=== PATIENT | male | born 1980 | race African-American/Black ===

== ENCOUNTER 2024-12-30 11:46 | Emergency (ER) | payer MEDICAID ==
[~2024-12-30] VITALS: Ht 182.9 cm; Wt 137.0 kg
[2024-12-30 11:51] VITALS: TEMP 37
[2024-12-30] MEDS: SODIUM CHLORIDE 0.9% 1,000 ML IV ONE (12:46)
[2024-12-30 12:47] VITALS: O2SAT 100
[2024-12-30] MEDS: MIDAZOLAM HCL 2 MG/2 ML VIAL IV ONE (12:47)
[2024-12-30] MEDS: ONDANSETRON HCL 4MG/2ML INJ IV ONE (12:47)
[2024-12-30 12:50] LABS: BASOPHILS % 0.5 % (0.0-2.0); EOSINOPHILS % 0.5 % (0.0-5.0); HEMATOCRIT. 40.9 % (42.0-52.0); HEMOGLOBIN. 13.8 g/dL (14.0-18.0); LYMPHOCYTES % 29.8 % (20.0-50.0); MEAN CORPUSCULAR HEMOGLOBIN 30.5 pg (28.0-32.0); MEAN CORPUSCULAR HGB CONC 33.7 g/dL (31.0-37.0); MEAN CORPUSCULAR VOLUME 90.5 fL (80.0-94.0); MEAN PLATELET VOLUME 10.5 fl (7.4-10.4); MONOCYTES % 11.1 % (2.0-8.0); NEUTROPHILS % 58.1 % (40.0-76.0); PLATELET 173 x1000/uL (130-400); RED BLOOD CELL COUNT 4.52 mill/uL (4.7-6.1); RED CELL DISTRIBUTION WIDTH 15.2 % (11.6-14.6); WHITE BLOOD COUNT 7.7 x1000/uL (4.5-11.0)
[2024-12-30 12:59] LABS: CHLORIDE 104 mEq/L (98-107); POTASSIUM 3.9 mEq/L (3.5-5.1); SODIUM 142 mEq/L (136-145)
[2024-12-30 13:00] LABS: CALCIUM 9.5 mg/dL (8.7-10.4); CARBON DIOXIDE 24 mEq/L (21-32)
[2024-12-30 13:05] LABS: CREATININE 1.1 mg/dL (0.6-1.3); GLUCOSE 104 mg/dL (70-105); UREA NITROGEN BLOOD 11 mg/dL (9-23)
[2024-12-30 13:06] LABS: ETHANOL BLOOD < 10 mg/dL (<10)
[2024-12-30 13:32] LABS: *AMPHETAMINES SCREEN URINE PRESUMPTIVE POSITIVE (NEGATIVE); *BARBITURATES SCREEN URINE NEGATIVE (NEGATIVE); *BENZODIAZEPINES SCREEN URINE NEGATIVE (NEGATIVE); *COCAINE SCREEN URINE NEGATIVE (NEGATIVE); METHADONE URINE SCREEN NEGATIVE (NEGATIVE)
[2024-12-30 13:33] LABS: CANNABINOID URINE SCREEN PRESUMPTIVE POSITIVE (NEGATIVE); ECSTASY MDMA SCREEN URINE NEGATIVE (NEGATIVE); OPIATES URINE SCREEN NEGATIVE (NEGATIVE); PHENCYCLIDINE URINE SCREEN NEGATIVE (NEGATIVE)
[2024-12-30 14:39] VITALS: BP 151/91; PULSE 99; RESP 18; O2SAT 99
== END 2024-12-30 14:40 | disposition home or self-care (01) ==
LOC: ER 11:46
DX: F15.90 Other stimulant use, unspecified, uncomplicated (principal)
CPT/HCPCS: 80305; 80048; 80320; 85025; 36415; 93005; 96361; 96374; 96375; 99284; J2250; J2405; J7030; Z7610 ×2; G0480

== ENCOUNTER 2025-02-06 13:13 | Emergency (ER) | payer MEDICAID ==
[~2025-02-06] VITALS: Ht 182.9 cm; Wt 91.0 kg
[2025-02-06 13:16] VITALS: BP 137/77; PULSE 102; RESP 16; TEMP 36.5; O2SAT 99
[2025-02-06] MEDS ORDERED: DICYCLOMINE 10 MG/5 ML ORAL SYR PO STA (13:36)
[2025-02-06] MEDS ORDERED: MAGNESIUM/ALUMINUM HYDROXIDE/SIMETHICONE 30ML UDC PO STA (13:36)
[2025-02-06] MEDS ORDERED: FAMOTIDINE 20MG TABLET PO ONE (13:45)
[2025-02-06] MEDS ORDERED: DICYCLOMINE HCL 10MG CAPSULE PO SCH (14:00)
== END 2025-02-06 13:54 | disposition home or self-care (01) ==
LOC: ER 13:18
DX: F19.10 Other psychoactive substance abuse, uncomplicated (principal); F17.210 Nicotine dependence, cigarettes, uncomplicated; F41.0 Panic disorder [episodic paroxysmal anxiety]
CPT/HCPCS: 93005; 99283